=== PATIENT | female | born 2000 | race Caucasian/White ===

== ENCOUNTER → 2021-11-25 | Outpatient (CLI) | payer BC ==
[2021-11-25 23:32] LABS: CLUE CELLS OBSERVED (Not Observd)
== END ==
LOC: LAB 20:04
PROVIDERS: Nurse Practitioner Family
DX: N89.8 Other specified noninflammatory disorders of vagina (principal)
CPT/HCPCS: Q0111

== ENCOUNTER → 2022-10-18 | Outpatient (CLI) | payer BC ==
[2022-10-18 17:17] LABS: BASO # 0.03 K/mm3 (0.02-0.10); EOS # 0.23 K/mm3 (0.04-0.40); HEMATOCRIT 44.5 % (37.0-47.0); LYMPH# 2.57 K/mm3 (1.50-4.00); MEAN CELL VOLUME 84 fl (78-100); MEAN CORPUSCULAR HEMOGLOBIN 28 pg (27-31); MEAN CORPUSCULAR HGB CONC 34 g/dL (33-37); MEAN PLATELET VOLUME 9.6 fl (7.4-10.4); MONO # 0.34 K/mm3 (0.20-0.80); NEU # 2.64 K/mm3 (1.40-6.50); PLATELET COUNT 275 K/mm3 (130-400); RED BLOOD COUNT 5.29 M/mm3 (4.10-5.30); RED CELL DISTRIBUTION WIDTH 11.8 % (11.5-14.5); WHITE BLOOD COUNT 5.8 K/mm3 (4.8-10.8)
[2022-10-18 17:27] LABS: ALBUMIN 4.6 g/dL (3.5-5.0); POTASSIUM 3.7 mmol/L (3.5-5.1)
[2022-10-18 17:28] LABS: CALCIUM 9.5 mg/dL (8.3-10.5)
[2022-10-18 17:29] LABS: TOTAL PROTEIN 7.7 g/dL (6.4-8.3)
[2022-10-18 17:31] LABS: TOTAL BILIRUBIN 0.8 mg/dL (0.2-1.2)
[2022-10-19 23:33] LABS: COMPLEMENT C3 114 mg/dL (83-193); COMPLEMENT-C4 22 mg/dL (15-57)
[2022-10-20 12:46] LABS: ANA SCREEN with REFLEX Negative (Negative)
== END ==
LOC: LAB 17:02
DX: L98.9 Disorder of the skin and subcutaneous tissue, unspecified (principal)